=== PATIENT | female | born 1950 | race Caucasian/White ===

== ENCOUNTER 2020-05-18 14:25 | Outpatient (CLI) | payer MEDICARE | END 2020-05-18 14:26 | disposition home or self-care (01) | LOC: BICMRI 14:25 | PROVIDERS: ATTEND Orthopaedic Surgery | DX: M25.562 Pain in left knee (principal); S83.242A Other tear of medial meniscus, current injury, left knee, initial encounter; M71.22 Synovial cyst of popliteal space [Baker], left knee ==

== ENCOUNTER 2020-06-02 10:20 | Outpatient (CLI) | payer MEDICARE ==
[2020-06-02 11:08] LABS: #Basophils 0.1 10x3/uL (0.0-0.2); #Eosinphils 0.3 10x3/uL (0.0-0.5); #Monocytes 0.5 10x3/uL (0.0-1.1); #Neutrophils 2.3 10x3/uL (1.5-8.4); %Basophils 2.8 % (0.0-2.0); %Eosinophils 5.8 % (0.0-6.0); %Lymphocytes 34.7 % (18.0-47.0); %Monocytes 9.8 % (0.0-10.0); %Neutrophils 46.9 % (40.0-75.0); Hemoglobin 13.6 g/dL (12.0-15.5); Mean Corpuscular HGB CONC 32.4 g/dL (32.0-36.0); Mean Corpuscular Hemoglobin 28.8 pg (27.0-33.0); Mean Platelet Volume 10.1 fl (7.4-10.4); Platelet Count 384 10x3/uL (150-450); RBC Distribution Width 13.7 % (11.5-14.5); Red Blood Cell (RBC) Count 4.72 10x6/uL (3.90-5.03)
[2020-06-02 11:13] LABS: Anion Gap 11 mmol/L (10-20); BUN (Urea Nitrogen) 14 mg/dL (9.8-20.1); Calc. Creatinine Clearance 0 mL/min (70-130); Carbon Dioxide 31 mmol/L (23-31); Chloride 103 mmol/L (98-107); Glucose 67 mg/dL (80-115); Potassium 4.3 mmol/L (3.5-5.1); Sodium 141 mmol/L (136-145)
[2020-06-03 01:24] LABS: SARS-CoV-2 PCR by NAA Not Detected (NotDetected)
== END 2020-06-02 10:21 | disposition home or self-care (01) ==
LOC: LABBT 10:20
PROVIDERS: ATTEND Orthopaedic Surgery
DX: Z01.818 Encounter for other preprocedural examination (principal); S83.242A Other tear of medial meniscus, current injury, left knee, initial encounter; Z20.822 Contact with and (suspected) exposure to COVID-19
CPT/HCPCS: 80048; 85025; 93005; U0003; U0005; 87635; 93010

== ENCOUNTER 2020-06-07 06:02 | Day surgery (SDC) | payer MEDICARE ==
[2020-06-06 11:51] VITALS: BMI 22.4
[2020-06-07] MEDS ORDERED: Fentanyl 100 MCG/2 ML VIAL ONE (06:33)
[2020-06-07] MEDS ORDERED: Midazolam HCl 2 mg/2 ml Vial ONE (06:33)
[2020-06-07] MEDS ORDERED: PROPOFOL 20 ML ONE (07:13)
[2020-06-07] MEDS ORDERED: Ondansetron PF 4 MG/2 ML Vial ONE (07:43)
[2020-06-07] MEDS ORDERED: Lidocaine 2% w/Epinephrine 1:200K 20 ML VIAL ONE (07:43)
[2020-06-07] MEDS ORDERED: Lidocaine 1% PF 5 ML VIAL ONE (07:43)
[2020-06-07] MEDS ORDERED: PROPOFOL 200 MG/20 ML VIAL ONE (07:43)
[2020-06-07] MEDS ORDERED: Bupivacaine HCl 0.5%/Epinephrine 1:200,000/PF 30 ml Vial ONE (07:43)
[2020-06-07] MEDS ORDERED: Dexamethasone 20 MG/5 ML VIAL ONE (07:43)
[2020-06-07] MEDS ORDERED: Ketorolac Tromethamine 30 MG/ML VIAL ONE (10:07)
== END 2020-06-07 11:20 | disposition home or self-care (01) ==
LOC: SDC 06:02
PROVIDERS: ATTEND Orthopaedic Surgery
PROC: 0SQD4ZZ Repair Left Knee Joint, Percutaneous Endoscopic Approach (ICD-10-PCS; principal; 2020-06-07)
DX: S83.242A Other tear of medial meniscus, current injury, left knee, initial encounter (principal); M96.89 Other intraoperative and postprocedural complications and disorders of the musculoskeletal system; S89.82XA Other specified injuries of left lower leg, initial encounter; M23.8X2 Other internal derangements of left knee; J45.909 Unspecified asthma, uncomplicated; M06.9 Rheumatoid arthritis, unspecified; Z79.82 Long term (current) use of aspirin; Z79.899 Other long term (current) drug therapy; W22.09XA Striking against other stationary object, initial encounter
CPT/HCPCS: C1713; J0690; J1100; J1885; J2250; J2405; J2704; J3010